=== PATIENT | female | born 1970 | race Caucasian/White ===

== ENCOUNTER 2023-06-06 14:49 | Inpatient (IN) | payer OTHER ==
[~2023-06-06] VITALS: Ht 162.6 cm; Wt 57.2 kg
[2023-06-06 17:04] LABS: HEMATOCRIT 33.7 % (36.0-45.00); HEMOGLOBIN 11.2 g/dL (12.0-15.00); MEAN CELL VOLUME 77.5 fL (80.00-100.00); MEAN CORPUSCULAR HEMOGLOBIN 25.7 pg (27.00-32.0); MEAN CORPUSCULAR HGB CONC 33.2 g/dl (32.0-36.0); PLATELET COUNT 586 K/uL (150-450); RED BLOOD COUNT 4.34 M/uL (4.00-6.00); RED CELL DISTRIBUTION WIDTH 15.1 % (11.5-14.5)
[2023-06-06 17:21] LABS: PARTIAL THROMBOPLASTIN TIME 26.3 SECONDS (22.0-34.0)
[2023-06-06 17:22] LABS: ABG PH 7.438 (7.35-7.45); ABG PO2 69.3 mmHg (80-100); ABG pCO2 40.7 mmHg (35-45); BASE EXCESS 2.5 mmol/l; BICARBONATE 26.9 mmol/l (23-25); SaO2 94.4 %
[2023-06-06 17:27] LABS: ALBUMIN 2.1 gm/dL (3.4-5.0); ALKALINE PHOSPHATASE 90 U/L (50-136); ALT/SGPT 24 U/L (12-78); AST/SGOT 61 U/L (15-37); BILIRUBIN TOTAL 0.26 mg/dL (0.3-1.2); BILIRUBIN,CONJUGATED < 0.10 mg/dL (0.0-0.2); BLOOD UREA NITROGEN 32 mg/dL (7-18); BUN CREA RATIO 32 (7.0-25.0); CALCIUM 8.5 mg/dL (8.5-10.1); CARBON DIOXIDE 30 mEq/L (21-32); CHLORIDE 99 mmol/L (98-107); CREATININE SERUM 0.99 mg/dL (0.55-1.02); GFR 59.13; GLOBULINA 4.6 G/DL (2.4-3.5); GLUCOSE FASTING 139 mg/dL (65-100); OSMOLALITY SERUM 277 MOSM/KG (275-295); POTASSIUM 4.19 mEq/L (3.5-5.1); SODIUM 134 mmol/L (136-145); TOTAL PROTEIN 6.7 gm/dL (6.4-8.2)
[2023-06-07 08:27] LABS: HEMATOCRIT 31.2 % (36.0-45.00); HEMOGLOBIN 10.6 g/dL (12.0-15.00); MEAN CELL VOLUME 76.6 fL (80.00-100.00); MEAN CORPUSCULAR HEMOGLOBIN 25.9 pg (27.00-32.0); MEAN CORPUSCULAR HGB CONC 33.8 g/dl (32.0-36.0); PLATELET COUNT 496 K/uL (150-450); RED BLOOD COUNT 4.08 M/uL (4.00-6.00); RED CELL DISTRIBUTION WIDTH 14.8 % (11.5-14.5)
[2023-06-07 08:55] LABS: PARTIAL THROMBOPLASTIN TIME 28.5 SECONDS (22.0-34.0)
[2023-06-07 09:04] LABS: ALBUMIN 1.7 gm/dL (3.4-5.0); ALKALINE PHOSPHATASE 81 U/L (50-136); ALT/SGPT 27 U/L (12-78); AST/SGOT 56 U/L (15-37); BILIRUBIN TOTAL 0.29 mg/dL (0.3-1.2); BILIRUBIN,CONJUGATED < 0.10 mg/dL (0.0-0.2); BLOOD UREA NITROGEN 30 mg/dL (7-18); BUN CREA RATIO 31 (7.0-25.0); CALCIUM 8.1 mg/dL (8.5-10.1); CARBON DIOXIDE 32 mEq/L (21-32); CHLORIDE 98 mmol/L (98-107); CHOLESTEROL 236 mg/dL (0-200); CREATININE SERUM 0.97 mg/dL (0.55-1.02); GFR 60.54; GLUCOSE FASTING 106 mg/dL (65-100); HDL 49 mg/dl (40-60); LDL 158 mg/dl (0-130); OSMOLALITY SERUM 273 MOSM/KG (275-295); POTASSIUM 3.68 mEq/L (3.5-5.1); SODIUM 133 mmol/L (136-145); TOTAL PROTEIN 5.7 gm/dL (6.4-8.2); TRIGLYCERIDES 147 mg/dL (0-150); VLDL 29 (0-39)
[2023-06-07 10:40] LABS: ERYTHROCYTE SEDIMENTATION RATE 87 mm/hr
[2023-06-07 11:03] LABS: ABG PH 7.454 (7.35-7.45); ABG pCO2 42.9 mmHg (35-45); BASE EXCESS 4.9 mmol/l; BICARBONATE 29.4 mmol/l (23-25); SaO2 91.8 %
[2023-06-07 11:04] LABS: ABG PO2 58.7 mmHg (80-100)
== END 2023-06-10 16:33 | disposition home or self-care (01) | DRG 948 ==
LOC: ER 14:50 → SURH 18:02
PROVIDERS: General Practice; ADMIT Internal Medicine; ATTEND Internal Medicine
PROC: 0W9G3ZZ Drainage of Peritoneal Cavity, Percutaneous Approach (ICD-10-PCS; principal; 2023-06-06)
PROC: B54DZZZ Ultrasonography of Bilateral Lower Extremity Veins (ICD-10-PCS; 2023-06-06)
PROC: 4A12X4Z Monitoring of Cardiac Electrical Activity, External Approach (ICD-10-PCS; 2023-06-06)
PROC: 3E0F7SF Introduction of Other Gas into Respiratory Tract, Via Natural or Artificial Opening (ICD-10-PCS; 2023-06-06)
PROC: 0W993ZZ Drainage of Right Pleural Cavity, Percutaneous Approach (ICD-10-PCS; 2023-06-07)
PROC: 0W9B3ZZ Drainage of Left Pleural Cavity, Percutaneous Approach (ICD-10-PCS; 2023-06-09)
PROC: 0W9G3ZZ Drainage of Peritoneal Cavity, Percutaneous Approach (ICD-10-PCS; 2023-06-09)
DX: R18.8 Other ascites (principal); J90 Pleural effusion, not elsewhere classified; C56.2 Malignant neoplasm of left ovary; C79.9 Secondary malignant neoplasm of unspecified site; R00.0 Tachycardia, unspecified; R06.82 Tachypnea, not elsewhere classified; Z92.21 Personal history of antineoplastic chemotherapy